=== PATIENT | female | born 1990 | race Caucasian/White ===

== ENCOUNTER 2016-11-20 | Inpatient (IN) | payer OTHER ==
[~2016-11-20] VITALS: Ht 157.5 cm; Wt 59.0 kg
--- NOTE | ~2016-11-20 | PA ---
Unit #: [id number] #: [id number] Patient: LEXI SCOTT [id number] [facility] [address] [place] [address] [id number] I MR#: [id number] NAME: LEXI SCOTT ROOM: P212 Age: 26 Sex: F Admission Date: 11/20/2016 : 1990 Date of Assessment: Attending Physician: Messi Shelley M.D. Admitting Physician: Messi Shelley M.D. Primary Care Physician: Generic Doctor Not In System PSYCHIATRIC ASSESSMENT INFORMANTS The patient reliability, fair informant and chart reliability, good. CHIEF COMPLAINT Suicidal ideation and withdrawal. HISTORY OF PRESENT ILLNESS Ms. Lexi Scott is a 26-year-old female, presented with the above-mentioned complaint. The patient reports that she is a heroin addict. Reports suicidal ideation with a plan to overdose. The patient reports that she has attempted suicide in the past twice before. The patient reported that she wants to end everything. The patient reports that she wants to . The patient reports that she uses about 1 to 1-1/2 g a day. The patient is an IV drug user and also uses 0.25 g of meth daily. The patient also reported cutting. Reported she has not cut in the last 6 months. Denied any homicidal ideation. Reports depression and anxiety. Reports poor sleep, poor appetite, withdrawal symptoms, scored 17 on CIWA score. Needing inpatient admission at this time for psychiatric stabilization. PAST PSYCHIATRIC HISTORY Remarkable for history of previous treatment for suicidal ideation through [facility] in 01/2015. FAMILY HISTORY AND SOCIAL HISTORY The patient is currently homeless and poor support system. No legal charges. No history of abuse. History of chemical dependency in mother and father. MEDICAL HISTORY Remarkable for history of Crohn disease. Musculoskeletal; muscle strength and tone, no atrophy or abnormal movement. Gait normal. MEDICATION HISTORY None. ALLERGIES No known drug allergies. SUBSTANCE ABUSE HISTORY The patient reported tobacco use, age of onset 14; alcohol, age of onset 14; marijuana, age of onset 19; crack cocaine, age of onset 26; opioid, age of onset 21; and amphetamine, age of onset 24. The patient reported Unit #: [id number] #: [id number] Patient: LEXI SCOTT had legal problems and lost everything, home, family, . The patient denied any history of blackouts, HIV, and hepatitis, but reported withdrawal symptom, IV drug use, abdominal cramping, muscle cramping, diaphoresis, diarrhea, depressed mood, irritability, poor concentration, sleep problem, tremor, sweats, and chills. REVIEW OF SYSTEMS HEENT: Eyes, clear. Ears, nose, mouth, and throat; clear. CARDIOVASCULAR: Unremarkable. RESPIRATORY: Unremarkable. GI: Unremarkable. : Unremarkable. SKIN: Unremarkable. LYMPH NODE: Unremarkable. NEUROLOGIC: Unremarkable. ENDOCRINE: Unremarkable. HEMATOLOGIC: Unremarkable. ALLERGIC/IMMUNOLOGIC: Unremarkable. MUSCULOSKELETAL: Muscle strength and tone, no atrophy or abnormal movement. Gait normal. MENTAL STATUS EXAMINATION CONSTITUTIONAL: Measurement of vital signs; temperature 98.3, heart rate 73, respiratory rate 18, and blood pressure 110/57. Height 5 feet 2 inches and weight 130 pounds. GENERAL APPEARANCE: The patient dressed casually. The patient did not show any facial deformity. MUSCULOSKELETAL: Please see above. PSYCHIATRIC EXAMINATION Description of speech, regular rate and normal volume. Description of thought process, goal directed. Description of association, intact. Description of abnormal psychotic thinking; the patient denied any hallucinations or delusions, but mood lability, sad, depressed, suicidal ideation, and substance abuse. Description of the patient's judgment: Concerning everyday activity, poor. Social situation, poor. Concerning psychiatric condition, poor. Complete mental status examination; oriented in time, place, and person. Recent and remote memory, fair. Attention span and concentration, fair. Language, able to name object and repeat phrases. Fund of knowledge, aware of current event and passive vocabulary intact. Mood and affect, sad and dysphoric. Insight and judgment, fair to poor. ASSETS AND LIABILITIES Assets, the patient is articulate and able to take care of her ADL. Liability, history of depression and substance abuse. ADMITTING DIAGNOSES Psychiatric: Major depressive disorder, recurrent, severe, F33.2; opioid use disorder, severe, F11.20; and amphetamine use disorder, severe, F15.20. Secondary diagnosis: Deferred. Medical diagnosis: Crohn disease. Stressors: Psychosocial stressor. Unit #: [id number] #: [id number] Patient: LEXI SCOTT PSYCHIATRIC PLAN AND TREATMENT GOAL AND DISCHARGE PLAN 1. Advised to admit the patient on the inpatient unit. Provide safe, supportive, and structured environment. 2. Ordered labs; CBC, CMP, UA, UDS, and test. 3. Detox protocol and detox monitoring. 4. Plan to consider SSRI for depression. The patient to attend all the programing, group therapy, individual therapy, and chemical dependency group. Treatment goal to attain euthymic mood, gain insight into her problem, and learn coping skills. DISCHARGE PLAN Plan to stabilize the patient and consider followup in outpatient program. ESTIMATED LENGTH OF STAY 3 to 5 days. Dictated by... Messi Shelley M.D. ALFONSO/karissa TD: 11/21/2016 19:05 JOB #: [id number] PSYCHIATRIC ASSESSMENT Page 1 of 1 X Messi Shelley MD PSYCHIATRIC ASSESSMENT
--- NOTE | ~2016-11-20 | HP ---
Unit #: [id number] #: [id number] Patient: LEXI SCOTT [id number] [facility] [address] [place] [address] [id number] I MR#: [id number] NAME: LEXI SCOTT ROOM: P210 Age: 26 Sex: F Admission Date: 11/20/2016 : 1990 Attending Physician: Messi Shelley M.D. Admitting Physician: Messi Shelley M.D. Primary Care Physician: Generic Doctor Not In System HISTORY AND PHYSICAL HISTORY OF PRESENT ILLNESS Lexi is a 26-year-old female admitted on 11/20/[address] [place] [address] for detox from heroin PAST MEDICAL HISTORY Crohn's disease. PAST SURGICAL HISTORY Bilateral tubal ligation and cholecystectomy. SOCIAL HISTORY Smokes one pack of cigarettes daily. No alcohol use. Does report heroin use. She is currently and homeless. FAMILY HISTORY Noncontributory. REVIEW OF SYSTEMS CONSTITUTIONAL: No fever or chills. HEENT: Denies any sore throat, ear pain or runny nose. CARDIOVASCULAR: Denies chest pain, irregular heart rhythm or palpitations. CHEST: Denies shortness of breath or cough. No hemoptysis. GASTROINTESTINAL: Denies nausea, vomiting, diarrhea or chronic constipation. ENDOCRINE: Denies history of increased thirst or urination. No recent significant weight loss or gain. GENITOURINARY: Denies dysuria, frequency, or hematuria. SKIN: Denies any rashes. HEMATOLOGIC: Denies history of increased bleeding or bruising. MUSCULOSKELETAL: Denies any hot, swollen joints. No generalized muscle pain. NEUROLOGIC: Denies problems with vision or speech. No frequent, severe headaches. No numbness, tingling or weakness in any extremities. Denies loss of bladder or bowel control. CURRENT MEDICATIONS None. ALLERGIES None. Unit #: [id number] #: [id number] Patient: LEXI SCOTT PHYSICAL EXAMINATION GENERAL: Alert, oriented, in no acute distress. VITAL SIGNS: Blood pressure 131/68, heart rate 116, respirations 20, temperature 98.0. HEIGHT: 5 foot 2 inches. WEIGHT: 130 pounds. SKIN: Warm and dry without rash or lesion. HEENT: Normocephalic. TMs not viewed. Oral and nasal passages clear. Conjunctivae clear. PERRLA. EOMs intact. NECK: Supple without lymphadenopathy or thyromegaly. HEART: Regular rate and rhythm without murmur. LUNGS: Clear. ABDOMEN: Soft, nontender, without masses or hepatosplenomegaly. : Not done. EXTREMITIES: No evidence of cyanosis, clubbing or edema. Moves all without focal deficit. NEUROLOGICAL: Grossly within normal limits. Cranial Nerves: II: Visual reno are intact. III, IV AND : Extraocular movements are intact. Pupils are equal, round and reactive to light. V: Facial sensation is grossly normal. VII: Facial movements and expression are normal. VIII: Auditory acuity grossly intact. IX, X: Uvula is midline. Phonation is normal. XI: Patient shrugs shoulders and turns head normally. XII: Tongue protrudes in the midline. Sensory and Motor Function: Sensory and motor sensation is grossly normal. Motor: moves all extremities well. Coordination: Gait is normal. Deep Tendon Reflexes: Intact. IMPRESSION 1. Psychiatric admission. 2. Crohn's disease. RECOMMENDATIONS Psychiatric, per psychiatrist. MEDICAL: I see no contraindications to participating in facility's activities. MEDICAL PROGNOSIS Good. MEDICAL CONDITION Stable. Dictated by... Virgie Joshua TD: 11/20/2016 19:55 JOB #: [id number] Unit #: [id number] #: [id number] Patient: LEXI SCOTT HISTORY AND PHYSICAL Page 1 of 1 X YISSEL MENDEZ APRN HISTORY AND PHYSICAL
--- NOTE | ~2016-11-20 | DS ---
Unit #: [id number] #: [id number] Patient: LEXI SCOTT [id number] [facility] [address] [place] [address] [id number] I MR#: [id number] NAME: LEXI SCOTT ROOM: [facility] Age: 26 Sex: F Admission Date: 11/20/2016 : 1990 Discharge Date: 11/23/2016 Attending Physician: Messi Shelley M.D. Primary Care Physician: Generic Doctor Not In System DISCHARGE SUMMARY REASON FOR ADMISSION Suicidal ideation and withdrawal. DIAGNOSTIC STUDIES LABORATORY DATA: Urine drug screen positive for amphetamine. HOSPITAL COURSE Patient was admitted to inpatient unit on November 20 and discharged on 11/23/16. Patient was treated on the inpatient unit with (1) therapy, medication management, psychoeducation, psychotherapy, structure milieu, chemical dependency group, and detox protocol. Patient was responsive to treatment. Subsequently, patient will be discharged with a plan to follow up on outpatient program. DISCHARGE MEDICATION Celexa 20 mg at bedtime for depression. DISCHARGE DIAGNOSES PSYCHIATRIC 1. Major depressive disorder, recurrent, severe, F33.2. 2. Opioid use disorder, severe, F11.20. 3. Amphetamine use disorder, severe, F15.20. SECONDARY DIAGNOSIS: Deferred. MEDICAL DIAGNOSIS: Crohn disease. STRESSORS: Psychosocial stressors. INSTRUCTIONS TO PATIENT Patient to follow up in outpatient clinic as per social worker assistant. CONDITION AT DISCHARGE Patient pleasant and cooperative. Denied any psychotic symptoms or any suicidal ideation. PROGNOSIS Guarded. DIET AND ACTIVITY As tolerated. Unit #: [id number] #: [id number] Patient: LEXI SCOTT Dictated by... Jasmyn Silveira/trino TD: 11/24/2016 13:34 JOB #: [id number] DISCHARGE SUMMARY Page 1 of 1 X Messi Shelley MD X DISCHARGE SUMMARY
--- NOTE | ~2016-11-20 | PN ---
Unit #: [id number] #: [id number] Patient: LEXI SCOTT [id number] [facility] [address] [place] [address] [id number] MR#: [id number] NAME: LEXI SCOTT ROOM: P212 Age: 26 Sex: F Admission Date: 11/20/2016 : 1990 Attending Physician: Messi Shelley M.D. Admitting Physician: Messi Shelley M.D. Primary Care Physician: Generic Doctor Not In System [facility] PROGRESS NOTES DATE 11/22/2016 DISCUSSION Ms. Lexi Scott is a 26-year-old female seen on 11/22/2016. The patient interviewed, chart reviewed. Obtained information from nursing staff. The patient was compliant and cooperative. Mood was labile. The patient tolerating medication fairly well wanted to go to a 30 day detox program. Complete review of systems unremarkable. MENTAL STATUS EXAMINATION General appearance, the patient dressed casually. Attention span and concentration fair. Oriented to time, place and person. Mood and affect labile. Speech monotone. Thought process concrete. The patient denied any thoughts of harming self or others or any psychotic symptoms. Recent and remote memory poor. Insight and judgement poor. DIAGNOSES 1. Mood disorder NOS. 2. Opioid use disorder severe. 3. Amphetamine use disorder severe. ASSESSMENT/PLAN Advise to continue with current medication with a plan to discharge patient this week to a rehab program inpatient. Dictated by... Jasmyn Silveira/patrick TD: 11/22/2016 21:38 JOB #: [id number] Unit #: [id number] #: [id number] Patient: LEXI SCOTT [facility] PROGRESS NOTES Page 1 of 1 X Messi Shelley MD X PROGRESS NOTE
[2016-11-21 10:00] LABS: BASOPHIL% 0.5 % (0-2.5); EOSINOPHIL# 0.2 X10e3 (0-0.7); EOSINOPHIL% 4.6 % (0.0-7.0); HEMATOCRIT 40.1 % (35.0-45.0); HEMOGLOBIN 13.5 gm/dL (12.0-16.0); LYMPHOCYTE# 2.4 X10e3 (1.0-3.5); LYMPHOCYTE% 46.9 % (17.0-45.0); MEAN CELL VOLUME 87.9 FL (83-96); MEAN CORPUSCULAR HEMOGLOBIN 29.7 PG (28-34); MEAN CORPUSCULAR HGB CONC 33.8 g/dL (30-36); MEAN PLATELET VOLUME 6.7 FL (6.5-11.5); MONOCYTE# 0.3 X10e3 (0-1.0); MONOCYTE% 6.2 % (3.0-12.0); NEUTROPHIL# 2.2 X10e3 (1.5-7.1); NEUTROPHIL% 41.8 % (40-75); PLATELET COUNT 345 X10e3 (140-420); RED BLOOD COUNT 4.55 X10e (3.90-5.30); RED CELL DISTRIBUTION WIDTH 13.7 % (11.0-15.5); WHITE BLOOD COUNT 5.2 X10e3 (4.0-10.5)
[2016-11-21 10:11] LABS: ALBUMIN SERUM 3.3 g/dL (3.5-5.0); BILIRUBIN,TOTAL 0.2 mg/dL (0.2-2.0); BUN/CREATININE RATIO 11.42; CREATININE SERUM 0.7 mg/dL (0.6-1.4); GLOM FILT RATE Estimated 120.4 mL/min (>60); POTASSIUM 4.3 mmol/L (3.5-5.1); PROTEIN TOTAL SERUM 6.7 g/dL (6.0-8.3)
[2016-11-21 10:14] LABS: DIFF IND NO
[2016-11-22 09:54] LABS: URINE APPEARANCE CLEAR; URINE BILIRUBIN NEG (NEG); URINE BLOOD NEG (NEG); URINE COLOR YELLOW; URINE GLUCOSE NEG (NEG); URINE KETONE NEG (NEG); URINE LEUKOCYTE ESTERASE TRACE (NEG); URINE NITRATE NEG (NEG); URINE PH 6.5 (5-8); URINE PROTEIN NEG (NEG); URINE SPECIFIC GRAVITY 1.007 (1.003-1.035); URINE UROBILINOGEN 0.2 MG/DL (NEG)
[2016-11-22 09:59] LABS: URBCS1 AUWI 0-2 /[HPF] (0-2); URINE BACTERIA AUWI NEG (NEGATIVE); URINE SQUAMOUS EPITHELIAL CELL NONE SEEN /[HPF]; UWBCS1 AUWI 0-2 (0-5)
[2016-11-22 10:32] LABS: AMPHETAMINE POS (NEG); BARBITURATES NEG (NEG); BENZODIAZEPINES NEG (NEG); COCAINE NEG (NEG); MARIJUANA NEG (NEG); OPIATES NEG (NEG); TRICYCLIC ANTIDEPRESSANTS NEG (NEG); U METHADONE NEG (NEG)
== END 2016-11-23 09:40 | disposition home or self-care (01) | DRG 885 ==
LOC: P2S 09:59
PROVIDERS: Psychiatry & Neurology Psychiatry
PROC: HZ2ZZZZ Detoxification Services for Substance Abuse Treatment (ICD-10-PCS; principal; 2016-11-20)
DX: F33.2 Major depressive disorder, recurrent severe without psychotic features (principal); F11.20 Opioid dependence, uncomplicated; R45.851 Suicidal ideations; F15.20 Other stimulant dependence, uncomplicated; F17.210 Nicotine dependence, cigarettes, uncomplicated
CPT/HCPCS: 80053; 80307; 81003; 84703; 85025; 86592